=== PATIENT | female | born 1960 | race Hispanic/Latino ===

== ENCOUNTER 2019-05-04 11:41 | Observation (INO) | payer OTHER ==
[~2019-05-04] VITALS: Ht 165.1 cm; Wt 59.1 kg
[2019-05-04] MEDS ORDERED: LORAZEPAM INJ 2 MG/ML VIAL IV ONE (12:00)
[2019-05-04 12:01] LABS: BASOPHILS # (AUTO) 0.1 (0.0-0.1); BASOPHILS % 0.6 % (0.0-1.0); EOSINOPHILS # (AUTO) 0.5 (0.0-0.4); EOSINOPHILS % 3.6 % (0.0-6.0); HEMATOCRIT 42.6 % (34.2-44.1); LYMPHOCYTES # (AUTO) 6.8 (1.0-3.2); LYMPHOCYTES % 53.4 % (18.0-39.1); MEAN CORPUSCULAR HEMOGLOBIN 26.1 pg (28-32); MEAN CORPUSCULAR HGB CONC 32.9 g/dL (31-35); MEAN CORPUSCULAR VOLUME 79.3 fL (81-99); MONOCYTES # (AUTO) 0.9 (0.2-0.8); NEUTROPHILS # (AUTO) 4.4 (2.1-6.9); PLATELET COUNT 392 x10e3/uL (140-360); RED BLOOD COUNT 5.37 x10e6/uL (3.6-5.1); RED CELL DISTRIBUTION WIDTH 14.9 % (11.7-14.4)
--- NOTE | 2019-05-04 12:32 | NUR ---
pt bizzare behavior. pt holding breath, sternal rubbed, immediately started breathing and crying louder and asked if taken any drugs and states yes. pt family (2 daughters) arrived and state only hx aniexty and takes valium. pt denies overdose. daughter pushed door open on her arrival standing in doorway staring at pt, walks over to pt, places hands on pt, begins praying in [place]. after approx 1 min, daughter began loudly praying (chanting) in south korean sounding language loudly. daughter throwing her head back and loudly heard down hallway.
--- NOTE | 2019-05-04 13:09 | Diagnostic Imaging Report ---
Exam: Chest radiograph Clinical History: Shortness of breath Findings: The cardiomediastinal silhouette and lungs are normal. The regional skeleton and soft tissue are unremarkable. There is no evidence of pleural effusion or pneumothorax. Impression: No radiographic evidence of acute cardiopulmonary disease. Signed by: Dr. Candido Welsh MD on 05/04/2019 1:06 PM
[2019-05-04 13:17] LABS: AMPHETAMINES SCREEN,URINE POSITIVE (NEGATIVE); BENZODIAZEPINES SCREEN,URINE POSITIVE (NEGATIVE); PHENCYCLIDINE SCREEN,URINE NEGATIVE (NEGATIVE)
--- NOTE | 2019-05-04 13:22 | NUR ---
ED Visit-ASSESSMENT: Spiritual distress [employer] referred by RN. Pt's daughters worried about mother's health. Daughters state mother identifies as Yazdanism. Pt's daughters state illness may be associated with a relationship. Intervention: Provided calming pastoral presence and prayer. Facilitated illness review. Provided information on how to reach cost accounting analyst, if needed. Outcome: Followed up with RN. No need to follow at this time. JEAN CARLOS PLEITEZ [employer] Spiritual Care Department O: [phone] Pager: [phone] ([phone] number calling from)
[2019-05-04 14:00] LABS: ALBUMIN 4.5 g/dL (3.5-5.0); ALBUMIN/GLOBULIN RATIO 1.2 (0.8-2.0); CALCIUM 10.6 mg/dL (8.4-10.2); CREATININE, SERUM 1.1 mg/dL (0.57-1.11)
[2019-05-04] MEDS ORDERED: SODIUM CHLORIDE 0.9% 1000ML 1,000 ML IV SCH (14:23)
--- NOTE | 2019-05-04 14:28 | Diagnostic Imaging Report ---
Exam: Head CT without contrast History: Altered mental status Comparison studies: None Technique: Axial images were obtained from the skull base to the vertex. Coronal and sagittal images reconstructed from the axial data. Dose modulation, iterative reconstruction, and/or weight based adjustment of the mA/kV was utilized to reduce the radiation dose to as low as reasonably achievable. Radiation dose: Total DLP: 1036 mGy*cm. Estimated effective dose: DLP x 0.015 Intravenous contrast: None Findings: Scalp: No abnormalities. Bones: No fractures, blastic or lytic lesions. Brain sulci: Appropriate for age. Ventricles: Normal in size and configuration. No hydrocephalus. Extra-axial spaces: No masses, no fluid collection. Parenchyma: No mass, acute hemorrhage or acute or chronic cortical insults. A few subtle hypodensities in the supratentorial white matter are nonspecific but may be chronic microvascular ischemic changes. A 10 mm extra-axial lesion which arises from the right posterior medial tentorial leaflet without mass effect may be a small meningioma. Sellar/suprasellar region: No abnormalities. Craniocervical junction: Patent foramen magnum. No Chiari one malformation. Included paranasal sinuses: Clear. Middle ear and mastoids: Clear. IMPRESSION: 1. No acute intracranial abnormalities. 2. Mild chronic microvascular ischemic changes. 3. Incidental 10 mm right inferior tentorial extra-axial lesion without significant mass effect may be a small meningioma. Nonemergent brain MRI with IV contrast may further evaluate. Signed by: Dr. Jone Puckett M.D. on 05/04/2019 2:25 PM
--- OUTSIDE RECORDS SUMMARY | 2019-05-04 14:32 | XMS REPORT ---
Author [facility] Address Unknown Phone Unavailable Care Team Providers Care Electrician Master Name Role Phone Jinny HERNÁNDEZ Unavailable Unavailable Problems This patient has no known problems. Allergies, Adverse Reactions, Alerts This patient has no known allergies or adverse reactions. Medications This patient has no known medications. Results Test Description Test Time Test Comments Text Results Atomic Results Result Comments CT BRAIN WO 2019-05-04 14:17:00 [place] [id number] Patient Name: KYLE HANSEN MR #: [id number] : 1960 Age/Sex: 58/F Req #: [id number] [facility] Physician: Ordered by: WES HERNÁNDEZ MD Report #: [id number] Location: ER Room/Bed: Procedure: [id number] CT/CT BRAIN WO Exam Date: 05/04/19 Exam Time: 1400 REPORT STATUS: Signed Exam: Head CT without contrast History: Altered mental status Comparison studies: None Technique: Axial images were obtained from the skull base to the vertex. Coronal and sagittal images reconstructed from the axial data. Dose modulation, iterative reconstruction, and/or weight based adjustment of the mA/kV was utilized to reduce the radiation dose to as low as reasonably achievable. Radiation dose: Total DLP: 1036 mGy*c m. Estimated effective dose: DLP x 0.015 Intravenous contrast: None Findings: Scalp: No abnormalities. Bones: No fractures, blastic or lytic lesions. Brain sulci: Appropriate for age. Ventricles: Normal in size and configuration. No hydrocephalus. Extra-axial spaces: No masses, no fluid collection. Parenchyma: No mass, acute hemorrhage or acute or chronic cortical insults. A few subtle hypodensities in the supratentorial white matter are nonspecific but may be chronic microvascular ischemic changes. A 10 mm extra-axial lesion which arises from the right posterior medial tentorial leaflet without mass effect may be a small meningioma. Sellar/suprasellar region: No abnormalities. Craniocervical junction: Patent foramen magnum. No Chiari one malformation. Included paranasal sinuses: Clear. Middle ear and mastoids: Clear. IMPRESSION: 1. No acute intracranial abnormalities. 2. Mild chronic microvascular ischemic changes. 3. Inc idental 10 mm right inferior tentorial extra-axial lesion without significant mass effect may be a small meningioma. Nonemergent brain MRI with IV contrast may further evaluate. Signed by: Dr. Alexei Puckett M.D. on 05/04/2019 2:25 PM Dictated By: ALEXEI PUCKETT MD 142 Transcribed By: URSULA on 05/04/19 142 COPY TO: WES HERNÁNDEZ MD CHEST SINGLE (PORTABLE) 2019-05-04 13:06:00 [place] [address] Patient Name: KYLE HANSEN MR #: [id number] : 1960 Age/Sex: 58/F Req #: [id number] Adm Physician: Ordered by: WES HERNÁNDEZ MD Report #: [id number] Location: ER Room/Bed: Procedure: [id number] DX/CHEST SINGLE (PORTABLE) Exam Date: 05/04/19 Exam Time: 1210 REPORT STATUS: Signed Exam: Chest radiograph Clinical History: Shortness of breath Findings: The cardiomediastinal silhouette and lungs are normal. The regional skeleton and soft tissue are unremarkable. There is no evidence of pleural effusion or pneumothorax. Impression: No radiographic evidence of acute cardiopulmonary disease. Signed by: Dr. Candido Welsh MD on 05/04/2019 1:06 PM Dictated By: NAUN WELSH MD 1306 Transcribed By: URSULA on 05/04/19 1306 COPY TO: WES HERNÁNDEZ MD
[2019-05-04 14:45] LABS: ABG HCO3 13 mmol/L (23-28); ABG PCO2 11 mmHg (41-51); ABG PH 7.71 (7.31-7.41); ABG PO2 145 mmHg (80-105)
--- NOTE | 2019-05-04 15:35 | NUR ---
REPORT GIVEN FROM RACHAEL IN ER AWAITING FOR PT TO ARRIVE TO FLOOR
[2019-05-04 16:02] VITALS: BP 103/70
[2019-05-04 16:36] VITALS: BP 103/70
[2019-05-04 17:04] VITALS: BP 103/70
[2019-05-04] MEDS ORDERED: NAPROXEN250 MG PO (17:07)
[2019-05-04] MEDS ORDERED: PREDNISONE10 MG PO (17:08)
[2019-05-04] MEDS ORDERED: VALIUM5 MG PO (17:08)
[2019-05-04] MEDS ORDERED: AUGMENTIN 875-1 EACH PO (17:08)
[2019-05-04] MEDS ORDERED: ZYRTEC10 MG (17:08)
[2019-05-04 20:00] VITALS: BP 113/81
--- NOTE | 2019-05-04 20:40 | NUR ---
Patient is concerned regarding hospital bills. Thinks she don't need the CT of the chest and to stay overnight tonight. Spoke with Dr. Vazquez new orders received to discharge patient and cancel CT Chest ordered.
[2019-05-04 20:43] LABS: ANISOCYTOSIS SLIGHT; BLAST CELLS % MANUAL 4; LYMPHOCYTES % (MANUAL) 28 % (19-48); MONOCYTES % (MANUAL) 6 % (3.4-9.0); NEUTROPHILS % (MANUAL) 52 % (40-74); POIKILOCYTOSIS SLIGHT
[2019-05-04 20:44] LABS: PLATELET ESTIMATE ADEQUATE; PLATELET MORPHOLOGY COMMENT FEW LARGE; RBC MORPHOLOGY COMMENT NORMAL
--- NOTE | 2019-05-04 21:11 | NUR ---
Discharge patient in good condition. No weakness noted. Written and verbal instructions given.
--- NOTE | 2019-05-05 01:38 | History and Physical ---
A 58-year-old female, comes in with acute shortness of breath and lower extremity numbness and weakness. HISTORY OF PRESENTING ILLNESS: Ms. Tamiko Bearden is a 58-year-old female, who was in usual state of health until about a week ago, the patient started to have upper respiratory symptoms, went to her primary care physician, was given amoxicillin/clavulanic acid and also prednisone 10 mg daily. The patient was sitting at a desk today when she started to feel some shortness of breath and felt like she was having chest pain, waited for a couple of hours until the pain got worse and the patient's shortness of breath got worse. The patient apparently, however, was tachypneic and started to have perioral numbness, upper arm numbness, and lower extremity numbness too. The patient reported to the emergency room and was admitted to the hospital for somatization disorder. PAST MEDICAL HISTORY: History of insomnia and history of apparent exposure to chemicals about 5 to 6 months ago. The patient has no other medical problems. PAST SURGICAL HISTORY: Noncontributory. SOCIAL HISTORY: No EtOH and no IV drug abuse either. REVIEW OF SYSTEMS: Positive for chest pain. Positive for shortness of breath. No nausea. No vomiting. No diarrhea. No constipation. No rectal bleeding. No hematochezia. No hematemesis either. SOCIAL HISTORY: No EtOH. No IV drug abuse either. PHYSICAL EXAMINATION: VITAL SIGNS: Temperature is 96.7, pulse of 89, respirations of 19, blood pressure is 103/70, and pulse oximetry of 100%. HEENT: Normocephalic and atraumatic. Pupils are reactive to light and accommodation. CVS: S1 and S2 normal. Regular rate and rhythm. LUNGS: Good air entry into all lung remy. ABDOMEN: Nontender and nondistended. EXTREMITIES: No clubbing, no cyanosis, and/or no edema. LABORATORY VALUES: Initial white count is 12,000, hemoglobin 14,000, and neutrophil count is 35. The patient's chemistries show sodium of 136, BUN of 9, and creatinine of 1.10. EGFR of 5. The patient's toxicology positive for amphetamines and also benzodiazepines. Coag studies, D-dimer is 0.33. IMAGING STUDIES: The patient's brain CT shows no acute intracranial abnormalities, mild chronic microvascular changes, incidental 10 mm infratentorial extra-axial lesion without significant mass effect, maybe a small meningioma, nonemergent brain MRI. Chest x-ray shows no radiographic evidence of acute abnormalities. ASSESSMENT: Ms. Tamiko Bearden with, 1. Acute stress reaction. 2. Shortness of breath. 3. Incidental finding of meningioma. 4. Leukocytosis. PLAN: The patient has been in observation. A consult with Dr. Cortez, the psychiatrist has been done for acute stress reaction versus anxiety reaction. The patient is also scheduled for a CT of the chest to rule out lung pathology in lieu of leukocytosis. DISPOSITION: Possible discharge tomorrow after being seen by Psychiatry. Further recommendations per clinical course. MD KATIA AvilezJ/MODL /[id number]
== END 2019-05-04 21:09 | disposition home or self-care (01) ==
LOC: ER 11:41 → ERHOLD 14:29 → MED/SURG 16:09
PROVIDERS: ADMIT Family Medicine; ATTEND Family Medicine
DX: F43.0 Acute stress reaction (principal); Z82.49 Family history of ischemic heart disease and other diseases of the circulatory system; Z87.891 Personal history of nicotine dependence; R06.81 Apnea, not elsewhere classified; R41.82 Altered mental status, unspecified; D72.829 Elevated white blood cell count, unspecified; D32.9 Benign neoplasm of meninges, unspecified
CPT/HCPCS: 36415; 36600; 70450; 71045; 80053; 80307; 82805; 83880; 84484; 85025; 85379; 93005; 99285; G0378; J7030; 51700